=== PATIENT | male | born 1990 | race Caucasian/White ===

== ENCOUNTER 2017-08-29 21:56 | Emergency (ER) | payer OTHER ==
[~2017-08-29] VITALS: Ht 172.7 cm; Wt 71.7 kg
[~2017-08-29 21:56] MED LIST: BISA5EC PO; CITA20 PO; HYDACE5 PO; IBUP600 PO; Keflex500 MG PO; LEVE500 PO; LEVO750 PO; MAGCIT300 PO; NAPR500 PO; PENVK500 PO
== END 2017-08-29 23:53 | disposition left against medical advice (07) ==
LOC: ER 21:56
DX: Z53.21 Procedure and treatment not carried out due to patient leaving prior to being seen by health care provider (principal)

== ENCOUNTER 2018-03-12 16:59 | Emergency (ER) | payer OTHER ==
[~2018-03-12] VITALS: Ht 167.6 cm; Wt 77.1 kg
[2018-03-12 17:53] LABS: BASOPHILS ABSOLUTE AUTO 0.05 K/mm3 (0.00-0.23); BASOPHILS PERCENT AUTO 1 % (0-2); EOSINOPHILS ABSOLUTE AUTO 0.14 K/mm3 (0.00-0.68); EOSINOPHILS PERCENT AUTO 2 % (0-6); Hematocrit 46.1 % (37.0-53.0); Hemoglobin 15.9 g/dL (13.5-17.5); IMMATURE GRAN ABSOLUTE AUTO 0.02 K/mm3 (0.00-0.10); IMMATURE GRAN PERCENT AUTO 0 % (0-1); LYMPHOCYTES ABSOLUTE AUTO 2.31 K/mm3 (0.84-5.20); LYMPHOCYTES PERCENT AUTO 26 % (21-46); MONOCYTES ABSOLUTE AUTO 0.67 K/mm3 (0.16-1.47); MONOCYTES PERCENT AUTO 8 % (4-13); Mean Corpuscular HGB 31.8 pg (26.0-34.0); Mean Corpuscular HGB Conc 34.5 g/dL (31.5-36.5); Mean Corpuscular Volume 92 fL (80-100); Mean Platelet Volume 9.2 fL (9.1-12.4); NEUTROPHILS ABSOLUTE AUTO 5.55 K/mm3 (1.96-9.15); NEUTROPHILS PERCENT AUTO 64 % (41-73); Platelet Count 278 K/mm3 (150-400); RDW Coefficient Variation 11.5 % (11.7-14.2); RDW Standard Deviation 39.1 fL (35.1-46.3); White Blood Cell Count 8.74 K/mm3 (4.00-11.30)
[2018-03-12 18:29] LABS: Alanine Aminotransfer (ALT/SGP 31 U/L (12-78); Albumin, Blood 4.3 g/dL (3.4-5.0); Albumin/Globulin Ratio 1.3 (0.8-1.8); Alk Phos 96 U/L (50-136); Anion Gap 7 mmol/L (6-16); Aspartate Aminotrans (AST/SGOT 18 U/L (12-37); Bilirubin, Total 0.4 mg/dL (0.1-1.0); Blood Urea Nitrogen 13 mg/dL (8-24); Bun/Creatinine Ratio 18.6 (12.0-20.0); CO2, Blood 23 mmol/L (21-32); Calcium, Blood 8.5 mg/dL (8.5-10.1); Chloride, Blood 109 mmol/L (98-108); Ethanol (Alcohol), Blood, Med <3 mg/dL; Globulin, Blood 3.4 g/dL (2.2-4.0); Glomerular Filtration Rate >60 (60-); Glucose, Blood 90 mg/dL (70-99); Potassium, Blood 3.9 mmol/L (3.5-5.5); Sodium, Blood 139 mmol/L (136-145); Total Protein, Blood 7.7 g/dL (6.4-8.2)
[2018-03-12] MEDS ORDERED: IBUP600 PO (19:21)
== END 2018-03-12 19:36 | disposition home or self-care (01) ==
LOC: ER 16:59
PROVIDERS: Emergency Medicine
DX: S06.9X9A Unspecified intracranial injury with loss of consciousness of unspecified duration, initial encounter (principal); M54.5 Low back pain; Y93.39 Activity, other involving climbing, rappelling and jumping off; Z79.899 Other long term (current) drug therapy; F41.9 Anxiety disorder, unspecified; F17.210 Nicotine dependence, cigarettes, uncomplicated; W22.8XXA Striking against or struck by other objects, initial encounter; R20.2 Paresthesia of skin
CPT/HCPCS: 36415; 70450; 72125; 72131; 80053; 85025; 96374; 99284-25; G0480; J3010

== ENCOUNTER 2019-10-13 17:18 | Emergency (ER) | payer OTHER ==
[~2019-10-13] VITALS: Ht 170.2 cm; Wt 72.6 kg
== END 2019-10-13 18:24 | disposition left against medical advice (07) ==
LOC: ER 17:18
DX: R10.9 Unspecified abdominal pain (principal)
CPT/HCPCS: 99283

== ENCOUNTER 2020-03-13 12:00 | Emergency (ER) | payer OTHER ==
[~2020-03-13] VITALS: Ht 172.7 cm; Wt 72.6 kg
[2020-03-13] MEDS ORDERED: CLON.1 PO (13:24)
[2020-03-13] MEDS ORDERED: ONDA4ODT MM (13:24)
[2020-03-13] MEDS ORDERED: IBUP800 PO (13:24)
== END 2020-03-13 13:47 | disposition home or self-care (01) ==
LOC: ER 12:00
DX: F11.23 Opioid dependence with withdrawal (principal); F17.200 Nicotine dependence, unspecified, uncomplicated
CPT/HCPCS: 96374; 99284-25; A9270; J1885

== ENCOUNTER 2021-05-09 08:08 | Emergency (ER) | payer OTHER ==
[~2021-05-09] VITALS: Ht 172.7 cm; Wt 71.1 kg
[~2021-05-09 08:08] MED LIST changes: +CLON.1 PO; +IBUP800 PO; +ONDA4ODT MM; +PSEU120ER PO
[2021-05-09 09:44] LABS: BASOPHILS ABSOLUTE AUTO 0.05 K/mm3 (0.00-0.23); BASOPHILS PERCENT AUTO 0 % (0-2); EOSINOPHILS ABSOLUTE AUTO 0.22 K/mm3 (0.00-0.68); EOSINOPHILS PERCENT AUTO 2 % (0-6); Hematocrit 44.3 % (37.0-53.0); IMMATURE GRAN ABSOLUTE AUTO 0.04 K/mm3 (0.00-0.10); IMMATURE GRAN PERCENT AUTO 0 % (0-1); LYMPHOCYTES ABSOLUTE AUTO 2.09 K/mm3 (0.84-5.20); LYMPHOCYTES PERCENT AUTO 16 % (21-46); MONOCYTES ABSOLUTE AUTO 1.21 K/mm3 (0.16-1.47); MONOCYTES PERCENT AUTO 9 % (4-13); Mean Corpuscular HGB 31.4 pg (26.0-34.0); Mean Corpuscular HGB Conc 33.9 g/dL (31.5-36.5); Mean Corpuscular Volume 93 fL (80-100); Mean Platelet Volume 9.7 fL (9.1-12.4); NEUTROPHILS PERCENT AUTO 73 % (41-73); Platelet Count 286 K/mm3 (150-400); RDW Coefficient Variation 12.2 % (11.7-14.2); RDW Standard Deviation 41.8 fL (35.1-46.3); Red Blood Cell Count 4.78 M/mm3 (4.30-5.90); White Blood Cell Count 13.21 K/mm3 (4.00-11.30)
[2021-05-09 10:06] LABS: Anion Gap 5 mmol/L (6-16); Blood Urea Nitrogen 12 mg/dL (8-24); Bun/Creatinine Ratio 16.7 (12.0-20.0); CO2, Blood 25 mmol/L (21-32); Calcium, Blood 8.7 mg/dL (8.5-10.1); Chloride, Blood 109 mmol/L (98-108); Creatinine, Blood 0.72 mg/dL (0.60-1.20); Glomerular Filtration Rate >60 (60-); Glucose, Blood 104 mg/dL (70-99); Potassium, Blood 3.8 mmol/L (3.5-5.5); Sodium, Blood 139 mmol/L (136-145)
[2021-05-09] MEDS ORDERED: BUPRENORPHINE-1 EACH SL (10:24)
[2021-05-09] MEDS ORDERED: DICL75ER PO (10:24)
[2021-05-09] MEDS ORDERED: VENL75ER PO (10:25)
[2021-05-09] MEDS ORDERED: CEPH500 PO (10:26)
[2021-05-09] MEDS ORDERED: Bactrim Ds Tab1 EACH PO (10:26)
== END 2021-05-09 11:16 | disposition home or self-care (01) ==
LOC: ER 08:08
PROVIDERS: Physician Assistant
DX: L02.31 Cutaneous abscess of buttock (principal); F17.200 Nicotine dependence, unspecified, uncomplicated
CPT/HCPCS: 10060; 36415; 74177; 80048; 85025; 96374; 99283-25; J1885; Q9967

== ENCOUNTER 2021-05-10 15:27 | Emergency (ER) | payer OTHER ==
[~2021-05-10 15:27] MED LIST changes: +BUPRENORPHINE-1 EACH SL; +Bactrim Ds Tab1 EACH PO; +CEPH500 PO; +DICL75ER PO; +VENL75ER PO
== END 2021-05-10 16:30 | disposition left against medical advice (07) ==
LOC: ER 15:27
DX: Z53.21 Procedure and treatment not carried out due to patient leaving prior to being seen by health care provider (principal)

== ENCOUNTER 2023-09-30 15:57 | Emergency (ER) | payer OTHER ==
[~2023-09-30] VITALS: Ht 172.7 cm; Wt 71.7 kg
[~2023-09-30 15:57] MED LIST changes: +Amoxicillin500 MG PO; +HYDR1TAB94 PO
[2023-09-30 16:03] VITALS: BP 104/91
[2023-09-30] MEDS ORDERED: Methadone HCL 10 MG TAB PO ONE (16:15)
== END 2023-09-30 16:29 | disposition home or self-care (01) ==
LOC: ER 15:57
DX: F11.90 Opioid use, unspecified, uncomplicated (principal); F17.210 Nicotine dependence, cigarettes, uncomplicated; Z76.0 Encounter for issue of repeat prescription
CPT/HCPCS: A9270

== ENCOUNTER 2023-11-21 10:40 | Emergency (ER) | payer OTHER ==
[~2023-11-21] VITALS: Ht 175.3 cm; Wt 77.1 kg
[2023-11-21] MEDS ORDERED: METHADONE (10:53)
[2023-11-21] MEDS ORDERED: DiphenhydrAMINE HCl 50 MG/ML 1ML Vial IV ONE (10:55)
[2023-11-21] MEDS ORDERED: Metoclopramide HCl 5MG / ML 2ML Vial IV ONE (10:55)
[2023-11-21] MEDS ORDERED: NS 1,000 ML IV SCH (10:55)
[2023-11-21] MEDS ORDERED: Acetaminophen 500 MG Tab PO ONE (10:55)
[2023-11-21] MEDS ORDERED: IBUP600 PO (12:07)
[2023-11-21] MEDS ORDERED: ACET500 PO (12:07)
[2023-11-21 12:15] VITALS: BP 138/99
== END 2023-11-21 12:21 | disposition home or self-care (01) ==
LOC: ER 10:40
DX: R51.9 Headache, unspecified (principal); V40.6XXA Car passenger injured in collision with pedestrian or animal in traffic accident, initial encounter; G40.909 Epilepsy, unspecified, not intractable, without status epilepticus; F17.210 Nicotine dependence, cigarettes, uncomplicated; Z79.899 Other long term (current) drug therapy
CPT/HCPCS: 96361; 96374; 96375; 99284-25; A9270; J1200; J2765; J7030

== ENCOUNTER 2023-12-11 17:09 | Emergency (ER) | payer OTHER ==
[~2023-12-11] VITALS: Ht 172.7 cm; Wt 63.5 kg
[~2023-12-11 17:09] MED LIST changes: +ACET500 PO; +METHADONE
[2023-12-11 17:41] VITALS: BP 124/86
[2023-12-11] MEDS ORDERED: Methadone HCL 10 MG TAB PO ONE (17:50)
== END 2023-12-11 18:13 | disposition home or self-care (01) ==
LOC: ER 17:09
DX: F11.90 Opioid use, unspecified, uncomplicated (principal); G40.909 Epilepsy, unspecified, not intractable, without status epilepticus; F17.210 Nicotine dependence, cigarettes, uncomplicated; Z76.89 Persons encountering health services in other specified circumstances
CPT/HCPCS: 99281; A9270